=== PATIENT | male | born 1985 | race African-American/Black ===

== ENCOUNTER 2021-06-16 10:37 | Emergency (ER) | payer SELFPAY ==
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
[2021-06-16] MEDS ORDERED: MORPHINE 4 MG/ML SYR ONE (12:16)
[2021-06-16] MEDS ORDERED: ONDANSETRON 4 MG/2 ML VIAL ONE (12:16)
[2021-06-16 13:23] VITALS: BP 120/76; TEMP 97.8; O2SAT 96
== END 2021-06-16 13:13 | disposition home or self-care (01) ==
LOC: ER 10:37
DX: T24.201A Burn of second degree of unspecified site of right lower limb, except ankle and foot, initial encounter (principal); F17.210 Nicotine dependence, cigarettes, uncomplicated; X08.8XXA Exposure to other specified smoke, fire and flames, initial encounter
CPT/HCPCS: 96374; 96375; 99284; J2405